=== PATIENT | female | born 1995 | race Caucasian/White ===

== ENCOUNTER 2019-01-29 21:47 | Emergency (ER) | payer OTHER ==
--- OUTSIDE RECORDS SUMMARY | 2019-01-29 21:50 | XMS REPORT ---
:1995 Author Organization eClinicalWorks Care Team Providers Name Role Phone Kitty Petersen Provider Role Unavailable Allergies No Known Allergies Problems Problem Type Condition Code Onset Dates Condition Status Problem Abnormal bleeding in menstrual N93.9 Active cycle Problem Hx of abnormal cervical Pap smear Z87.898 Active Problem test negative Z32.02 Active Medications Medication Code Code Instructions Start End Date Status Dosage System Date Loestrin 12/21 [facility] 88131494184 1-20 MG-MCG June 24, Active 1 tablet (21) Orally Once a 2017 Results No Known Results Summary Purpose eClinicalWorks Submission
--- OUTSIDE RECORDS SUMMARY | 2019-01-29 21:50 | XMS REPORT ---
:1995 Author Organization eClinicalWorks Care Team Providers Name Role Phone Kitty Petersen Provider Role Unavailable Allergies, Adverse Reactions, Alerts Substance Reaction Event Type Steri-Strip Info Not Available Drug Allergy Problems Problem Type Condition Code Onset Dates Condition Status Problem Hx of abnormal cervical Pap smear Z87.898 Active Problem Nexplanon in place Z97.5 Active Problem Abnormal bleeding in menstrual N93.9 Active cycle Assessment Nexplanon removal Z30.46 Active Assessment Abnormal bleeding in menstrual N93.9 Active cycle Medications Medication Code System Code Instructions Start End Date Status Dosage Date Nexplanon [facility] 48479431903 68 MG Jan 01, April 14, Active not defined Subcutaneous 2016 2017 Results No Known Results Summary Purpose eClinicalWorks Submission
--- OUTSIDE RECORDS SUMMARY | 2019-01-29 21:50 | XMS REPORT ---
:1995 Author Organization eClinicalWorks Care Team Providers Name Role Phone Kitty Petersen Provider Role Unavailable Allergies, Adverse Reactions, Alerts Substance Reaction Event Type N.K.D.A. Info Not Available Non Drug Allergy Problems Problem Type Condition Code Onset Dates Condition Status Problem Hx of abnormal cervical Pap smear Z87.898 Active Assessment Hx of abnormal cervical Pap smear Z87.898 Active Problem Nexplanon in place Z97.5 Active Assessment Well woman exam with routine Z01.419 Active gynecological exam Assessment Nexplanon in place Z97.5 Active Medications Medication Code System Code Instructions Start End Date Status Dosage Date Nexplanon [facility] 42802569847 68 MG Active not defined Subcutaneous Results No Known Results Summary Purpose eClinicalWorks Submission
--- OUTSIDE RECORDS SUMMARY | 2019-01-29 21:50 | XMS REPORT ---
:1995 Author Organization eClinicalWorks Care Team Providers Name Role Phone Oscar De La Cruz Provider Role Unavailable Allergies No Known Allergies Problems Problem Type Condition Code Onset Dates Condition Status Problem Abnormal bleeding in menstrual N93.9 Active cycle Problem Hx of abnormal cervical Pap smear Z87.898 Active Problem test negative Z32.02 Active Assessment test negative Z32.02 Active Medications No Known Medications Results Name Result Date Reference Range Unit Abnormality Flag TEST URINE ----RESULTS NEG 20180624 URINALYSIS AUTO W/O SCOPE (59988) ----PROTEIN NWG 20180624 ----pH 5.5 20180624 ----NIT NEG 20180624 ----MARCO NEG 20180624 ----URO 0.2 20180624 ----SPECIFIC GRAVITY 1.025 20180624 ----BLO NEG 20180624 ----BILIRUBIN NEG 20180624 ----KETONES NEG 20180624 ----GLUCOSE NEG 20180624 Summary Purpose eClinicalWorks Submission
--- OUTSIDE RECORDS SUMMARY | 2019-01-29 21:50 | XMS REPORT ---
:1995 Author Organization eClinicalWorks Care Team Providers Name Role Phone Kitty Petersen Provider Role Unavailable Allergies No Known Allergies Problems Problem Type Condition Code Onset Dates Condition Status Problem Hx of abnormal cervical Pap smear Z87.898 Active Problem Abnormal bleeding in menstrual N93.9 Active cycle Medications No Known Medications Results No Known Results Summary Purpose eClinicalWorks Submission
--- OUTSIDE RECORDS SUMMARY | 2019-01-29 21:50 | XMS REPORT ---
[...] bleeding in menstrual N93.9 Active cycle Assessment Abnormal bleeding in menstrual N93.9 Active cycle Medications Medication Code System Code Instructions Start End Date Status Dosage Date Nexplanon [facility] [id number] 68 MG Active not defined Subcutaneous Results Name Result Date Reference Range Unit Abnormality Flag TEST URINE ----RESULTS neg [id number] URINALYSIS AUTO W/O SCOPE (58471) ----PROTEIN neg 20180331 ----pH 7.0 20180331 ----NIT neg 20180331 ----MARCO trace 20180331 ----URO 0.2 20180331 ----SPECIFIC GRAVITY 1.025 20180331 ----BLO 2+ 20180331 ----BILIRUBIN neg 20180331 ----KETONES trace 20180331 ----GLUCOSE neg 20180331 Summary Purpose eClinicalWorks Submission
[2019-01-30] MEDS ORDERED: CLINDAMYCIN HCL 150 MG CAP ONE (00:09)
[2019-01-30] MEDS ORDERED: LIDOCAINE JELLY 2%- 5 ML TUBE ONE (00:09)
[2019-01-30] MEDS ORDERED: KETOROLAC 30 MG/ML INJ ONE (00:09)
[2019-01-30] MEDS ORDERED: LIDOCAINE 1% MPF 5 ML VIAL ONE (00:09)
--- NOTE | 2019-01-30 01:15 | EDPHYS ---
Physician Documentation [facility] Name: Ana Brower Age: 23 yrs Sex: Female : 1995 Arrival Date: 01/29/2019 Time: 21:56 Bed 5 Private MD: Didier Bobo ED Physician Elier Chappell HPI: 01/30 02:35 This 23 yrs old Female presents to ER via Ambulatory with complaints of snw Abscess. 02:35 The patient presents with an abscess of the right inguinal area, The patient presents snw with cellulitis of the right inguinal area. Description: localized, erythematous, fluctuant, warm. Onset: The symptoms/episode began/occurred gradually, 1 week(s) ago, and became persistent. Associated signs and symptoms: The patient has no apparent associated signs or symptoms. Severity of symptoms: At their worst the symptoms were moderate, a " 8" out of "10". The patient has not experienced similar symptoms in the past. It is unknown whether or not the patient has recently seen a physician. 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 - Social history:: Smoking status: Patient uses tobacco products, smokes one-half pack cigarettes per day. - Ebola Screening: : Patient denies travel to an Ebola-affected area in the 21 days before illness onset. ROS: 01/30 02:30 Constitutional: Negative for fever, chills, and weight loss, Eyes: Negative for injury, snw pain, redness, and discharge, ENT: Negative for injury, pain, and discharge, Neck: Negative for injury, pain, and swelling, Cardiovascular: Negative for chest pain, palpitations, and edema, Respiratory: Negative for shortness of breath, cough, wheezing, and pleuritic chest pain, Abdomen/GI: Negative for abdominal pain, nausea, vomiting, diarrhea, and constipation, Back: Negative for injury and pain, : Negative for injury, bleeding, discharge, and swelling, MS/Extremity: Negative for injury and deformity, Neuro: Negative for headache, weakness, numbness, tingling, and seizure. Skin: Positive for abscess, cellulitis, of the right femoral area. Exam: 02:30 Constitutional: This is a well developed, well nourished patient who is awake, alert, snw and in no acute distress. Head/Face: Normocephalic, atraumatic. Eyes: Pupils equal round and reactive to light, extra-ocular motions intact. Lids and lashes normal. Conjunctiva and sclera are non-icteric and not injected. Cornea within normal limits. Periorbital areas with no swelling, redness, or edema. ENT: Nares patent. No nasal discharge, no septal abnormalities noted. Tympanic membranes are normal and external auditory canals are clear. Oropharynx with no redness, swelling, or masses, exudates, or evidence of obstruction, uvula midline. Mucous membranes moist. Neck: Trachea midline, no thyromegaly or masses palpated, and no cervical lymphadenopathy. Supple, full range of motion without nuchal rigidity, or vertebral point tenderness. No Meningismus. Chest/axilla: Normal chest wall appearance and motion. Nontender with no deformity. No lesions are appreciated. Cardiovascular: Regular rate and rhythm with a normal S1 and S2. No gallops, murmurs, or rubs. Normal PMI, no JVD. No pulse deficits. Respiratory: Lungs have equal breath sounds bilaterally, clear to auscultation and percussion. No rales, rhonchi or wheezes noted. No increased work of breathing, no retractions or nasal flaring. Abdomen/GI: Soft, non-tender, with normal bowel sounds. No distension or tympany. No guarding or rebound. No evidence of tenderness throughout. Back: No spinal tenderness. No costovertebral tenderness. Full range of motion. MS/ Extremity: Pulses equal, no cyanosis. Neurovascular intact. Full, normal range of motion. Neuro: Awake and alert, GCS 15, oriented to person, place, time, and situation. Cranial nerves II-XII grossly intact. Motor strength 5/5 in all extremities. Sensory grossly intact. Cerebellar exam normal. Normal gait. Psych: Awake, alert, with orientation to person, place and time. Behavior, mood, and affect are within normal limits. 02:30 Skin: Appearance: normal except for affected area, abscess, that is moderate sized, approximately 5 cm(s), cellulitis, that is mild, well demarcated, on the right inguinal area. Vital Signs: 01/29 22:00 BP 128 / 99; Pulse 87; Resp 18; Temp 100.2; Pulse Ox 100% on R/A; Height 5 ft. 5 in. aj1 (165.10 cm) (R); Pain 9/10; 01/30 01:23 BP 116 / 88; Pulse 58; Resp 16; Pulse Ox 99% on R/A; lp1 Procedures: 02:33 I \\T\\ D: Incision and drainage was performed for an abscess of the right right inguinal snw area Prepped with Betadine, Anesthetized with 5 ml's 1% Lidocaine. Incised with #10 blade. Drained large amount purulent fluid. serosanguinous fluid. Loculations removed. Packed with iodoform gauze, Dressing: non-Adherent dressing, the patient tolerated the procedure well. MDM: 01/29 23:10 Patient medically screened. snw 01/30 02:31 Data reviewed: vital signs, nurses notes. Data interpreted: Pulse oximetry: on room air snw is 99 %. Interpretation: normal. Counseling: I had a detailed discussion with the patient and/or guardian regarding: the historical points, exam findings, and any diagnostic results supporting the discharge/admit diagnosis, the need for outpatient follow up, for definitive care, to return to the emergency department if symptoms worsen or persist or if there are any questions or concerns that arise at home. Response to treatment: the patient's symptoms have markedly improved after treatment. 01/29 23:43 Order name: I\\T\\D Setup; Complete Time: 00:07 snw Administered Medications: 00:07 Drug: TORadol 60 mg Route: IM; Site: left gluteus; lp1 00:59 Follow up: Response: No adverse reaction lp1 00:07 Drug: Lidocaine Gel 2 % 1 application {Note: to R groin area.} Route: Mucous Membrane; lp1 00:07 Drug: Clindamycin 300 mg Route: PO; lp1 00:59 Follow up: Response: No adverse reaction lp1 00:58 Drug: Lidocaine (1 %) 5 mg Route: Infiltration; lp1 Disposition: 07:47 Co-signature as Attending Physician, Elier Chappell MD I agree with the assessment and wa plan of care. Disposition: 01/30/19 01:15 Discharged to Home. Impression: Cutaneous abscess of groin, Cellulitis of groin. - Condition is Stable. - Discharge Instructions: Skin Abscess, Cellulitis, Adult, Incision and Drainage, How to Take a Sitz Bath, Incision and Drainage, Care After. - Prescriptions for Clindamycin HCl 300 mg Oral Capsule - take 1 capsule by ORAL route every 6 hours for 10 days; 40 capsule. Diclofenac Sodium 75 mg Oral Tablet Sustained Release - take 1 tablet by ORAL route 2 times per day; 30 tablet. - Medication Reconciliation Form, Thank You Letter, Antibiotic Education, Prescription Opioid Use form. - Follow up: Didier Bobo MD; When: 2 - 3 days; Reason: Recheck today's complaints, Continuance of care, Re-evaluation by your physician. Follow up: Emergency Department; When: As needed; Reason: Worsening of condition. Signatures: Sandy Salinas, RN RN aj1 Nicole Bravo, SURVEILLANCE SPECIALIST-C SURVEILLANCE SPECIALIST-Csnw Tirna Guidry RN RN lp1 Elier Chappell MD MD [place] Corrections: (The following items were deleted from the chart) 01:23 01:15 01/30/2019 01:15 Discharged to Home. Impression: Cutaneous abscess of groin; lp1 Cellulitis of groin. Condition is Stable. Forms are Medication Reconciliation Form, Thank You Letter, Antibiotic Education, Prescription Opioid Use. Follow up: Didier Bobo; When: 2 - 3 days; Reason: Recheck today's complaints, Continuance of care, Re-evaluation by your physician. Follow up: Emergency Department; When: As needed; Reason: Worsening of condition. snw
--- NOTE | 2019-01-30 01:15 | ER ---
Nurse's Notes [facility] Name: Ana Brower Age: 23 yrs Sex: Female : 1995 Arrival Date: 01/29/2019 Time: 21:56 Bed 5 Private MD: Didier Bobo Diagnosis: Cutaneous abscess of groin;Cellulitis of groin Presentation: 01/29 21:57 Presenting complaint: Patient states: Abscess to suprapubic area for the past week. aj1 Patient states that it has been getting bigger. Transition of care: patient was not received from another setting of care. Onset of symptoms was January 2019. Risk Assessment: Do you want to hurt yourself or someone else? Patient reports no desire to harm self or others. Initial Sepsis Screen: Does the patient meet any 2 criteria? No. Patient's initial sepsis screen is negative. Does the patient have a suspected source of infection? Yes: Skin breakdown/wound. Care prior to arrival: None. 21:57 Method Of Arrival: Ambulatory aj 21:57 Acuity: ALLISON 4 aj1 Triage Assessment: 22:00 General: Appears in no apparent distress. uncomfortable, Behavior is calm, cooperative, aj1 appropriate for age. Pain: Complains of pain in right inguinal area Pain currently is 9 out of 10 on a pain scale. Neuro: Level of Consciousness is awake, alert, obeys commands. Cardiovascular: Patient's skin is warm and dry. Respiratory: Airway is patent Respiratory effort is even, unlabored, Respiratory pattern is regular, symmetrical. 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 - Social history:: Smoking status: Patient uses tobacco products, smokes one-half pack cigarettes per day. - Ebola Screening: : Patient denies travel to an Ebola-affected area in the 21 days before illness onset. Screenin/01 00:10 Abuse screen: Denies threats or abuse. Denies injuries from another. Nutritional lp1 screening: No deficits noted. Tuberculosis screening: No symptoms or risk factors identified. Fall Risk None identified. Assessment: 01/29 22:30 General: Appears in no apparent distress. Behavior is appropriate for age. Pain: lp1 Complains of pain in right femoral area Pain currently is 7 out of 10 on a pain scale. Neuro: No deficits noted. Cardiovascular: No deficits noted. Respiratory: No deficits noted. GI: No deficits noted. : No deficits noted. EENT: No deficits noted. Derm: Skin is pink, warm \\T\\ dry. Abscess located on right femoral area is half dollar sized, is hot to touch, is red, is raised. Musculoskeletal: No deficits noted. Vital Signs: 22:00 BP 128 / 99; Pulse 87; Resp 18; Temp 100.2; Pulse Ox 100% on R/A; Height 5 ft. 5 in. aj1 (165.10 cm) (R); Pain 9/10; 01/30 01:23 BP 116 / 88; Pulse 58; Resp 16; Pulse Ox 99% on R/A; lp1 ED Course: 01/29 21:56 Patient arrived in ED. es 21:56 Didier Bobo MD is Private Physician. es 21:58 Triage completed. aj1 22:00 Arm band placed on Patient placed in an exam room. aj1 22:18 Nicole Bravo FNP-C is PHCP. snw 22:18 Elier Chappell MD is Attending Physician. snw 22:30 Patient has correct armband on for positive identification. Placed in gown. lp1 23:53 Trina Guidry, RN is Primary Nurse. lp1 01/30 00:58 Assist provider with I \\T\\ D: of an abscess on right groin Set up I\\T\\D tray. Performed by lp 1 Nicole MORAN. 01:13 Didier Bobo MD is Referral Physician. snw 01:22 Patient did not have IV access during this emergency room visit. lp1 Administered Medications: 00:07 Drug: TORadol 60 mg Route: IM; Site: left gluteus; lp1 00:59 Follow up: Response: No adverse reaction lp1 00:07 Drug: Lidocaine Gel 2 % 1 application {Note: to R groin area.} Route: Mucous Membrane; lp1 00:07 Drug: Clindamycin 300 mg Route: PO; lp1 00:59 Follow up: Response: No adverse reaction lp1 00:58 Drug: Lidocaine (1 %) 5 mg Route: Infiltration; lp1 Outcome: 01:15 Discharge ordered by . felicia 01:22 Discharged to home ambulatory. lp1 01:22 Condition: good 01:22 Discharge instructions given to patient, Instructed on discharge instructions, follow up and referral plans. medication usage, wound care, Demonstrated understanding of instructions, follow-up care, medications, wound care, Prescriptions given X 2. 01:23 Patient left the ED. lp1 Signatures: Sandy Salinas, RN RN aj1 Nicole Bravo, SUPERVISOR WARPING DEPARTMENT-C SUPERVISOR WARPING DEPARTMENT-Csnw Sonja Way Laura, RN RN lp1
[2019-01-30 01:39] VITALS: TEMP 99
[2019-01-30 01:45] VITALS: BP 116/88; O2SAT 99
== END 2019-01-30 01:23 | disposition home or self-care (01) ==
LOC: ER 21:47
PROC: 0H9AXZZ Drainage of Inguinal Skin, External Approach (ICD-10-PCS; principal; 2019-01-30)
PROC: 0J9C0ZZ Drainage of Pelvic Region Subcutaneous Tissue and Fascia, Open Approach (ICD-10-PCS; 2019-01-30)
DX: L03.314 Cellulitis of groin (principal); F17.210 Nicotine dependence, cigarettes, uncomplicated; Z88.5 Allergy status to narcotic agent
CPT/HCPCS: 96372; 99283